=== PATIENT | female | born 1940 | race Hispanic/Latino ===

== ENCOUNTER 2022-08-31 14:23 | Emergency (ER) | payer OTHER ==
[~2022-08-31] VITALS: Ht 154.9 cm; Wt 56.2 kg
[2022-08-31] MEDS ORDERED: ACETAMINOPHEN 500 MG TABLET PO ONE (15:30)
[2022-08-31 16:56] VITALS: BP 128/74
== END 2022-08-31 17:00 | disposition home or self-care (01) ==
LOC: EDH 14:23
DX: M25.512 Pain in left shoulder (principal); E11.9 Type 2 diabetes mellitus without complications; E78.00 Pure hypercholesterolemia, unspecified; E03.9 Hypothyroidism, unspecified; Z88.0 Allergy status to penicillin; V49.49XA Driver injured in collision with other motor vehicles in traffic accident, initial encounter; Y93.89 Activity, other specified; Y92.413 State road as the place of occurrence of the external cause; Y99.8 Other external cause status
CPT/HCPCS: 73030

== ENCOUNTER 2024-04-05 09:18 | Emergency (ER) | payer OTHER ==
[~2024-04-05] VITALS: Ht 154.9 cm; Wt 57.2 kg
[2024-04-05] MEDS: DIAZEPAM 2 MG TAB PO ONE (10:00)
[2024-04-05] MEDS: LIDOCAINE 5% TOPICAL PATCH TP ONE (10:00)
[2024-04-05] MEDS: HYDROCODONE/ACETAMINOPHEN 5/325 MG TAB PO ONE (10:00)
[2024-04-05 10:16] LABS: CREATININE 0.7 mg/dL (0.5-1.0); POTASSIUM 4.3 mmol/L (3.5-5.1)
[2024-04-05 10:17] LABS: BASOPHILS # (AUTO) 0.03 K/uL (0.00-0.20); BASOPHILS % (AUTO) 0.6 % (0.0-5.0); EOSINOPHILS # (AUTO) 0.12 K/uL (0.00-0.70); EOSINOPHILS % (AUTO) 2.3 % (0.0-8.0); IMMATURE GRANULOCYTE ABSOLUTE 0.01 K/uL (0-1); LYMPHOCYTES # (AUTO) 1.7 K/uL (1.0-4.8); LYMPHOCYTES % (AUTO) 32.7 % (21.0-51.0); MEAN CORPUSCULAR HGB CONC 33.4 g/dL (32.0-36.0); MEAN CORPUSCULAR VOLUME 86.9 fL (79-99); MONOCYTES # (AUTO) 0.5 K/uL (0.1-1.0); MONOCYTES % (AUTO) 9.2 % (3.0-13.0); NEUTROPHILS # (AUTO) 2.9 K/uL (1.8-7.7); PLATELET COUNT (AUTO) 164 K/uL (130-400); RED BLOOD CELL COUNT(AUTO) 4.72 MIL/uL (4.00-5.50); RED CELL DISTRIBUTION WIDTH 12.8 % (11.0-15.5); WHITE BLOOD COUNT (AUTO) 5.3 K/uL (4.8-10.8)
[2024-04-05 10:20] LABS: ALBUMIN 4.1 g/dL (3.5-5.0); BILIRUBIN,TOTAL 0.6 mg/dL (0.2-1.0); TOTAL PROTEIN, SERUM 7.5 g/dL (6.0-8.3)
[2024-04-05 11:19] LABS: APPEARANCE,URINE CLEAR (CLEAR); BILIRUBIN,URINE NEGATIVE (NEGATIVE); COLOR,URINE LIGHT-YELLOW (YELLOW); GLUCOSE, URINE (UA) >=1000 mg/dL (NEGATIVE); KETONES,URINE NEGATIVE (NEGATIVE); LEUKOCYTE ESTERASE ,URINE 25 Leu/uL (NEGATIVE); NITRATE,URINE NEGATIVE (NEGATIVE); PROTEIN,URINE 10 mg/dL (NEGATIVE); UROBILINOGEN,URINE 0.2 mg/dL (0.2-1.0)
[2024-04-05 11:21] LABS: ADD UA MICROSCOPIC YES
[2024-04-05 11:23] LABS: MUCUS,URINE RARE LPF (None Seen); SQUAMOUS EPITHELIAL CELL,UR RARE /HPF (0-2)
[2024-04-05] MEDS: IBUPROFEN 400 MG TABLET PO ONE (12:09)
[2024-04-05 12:56] VITALS: BP 113/59; PULSE 59; RESP 18; O2SAT 98
[2024-04-05] MEDS ORDERED: DIAZ2TAB PO (12:57)
== END 2024-04-05 13:24 | disposition home or self-care (01) ==
LOC: EDH 09:18
DX: S29.011A Strain of muscle and tendon of front wall of thorax, initial encounter (principal); M62.838 Other muscle spasm; E11.9 Type 2 diabetes mellitus without complications; E03.9 Hypothyroidism, unspecified; Z98.890 Other specified postprocedural states; Z88.0 Allergy status to penicillin; Z88.8 Allergy status to other drugs, medicaments and biological substances; X58.XXXA Exposure to other specified factors, initial encounter; Y93.89 Activity, other specified; Y92.89 Other specified places as the place of occurrence of the external cause; Y99.8 Other external cause status
CPT/HCPCS: 36415; 71250; 80053; 81001; 85025; 86140; 93005

== ENCOUNTER 2024-12-27 17:23 | Emergency (ER) | payer OTHER ==
[~2024-12-27] VITALS: Ht 154.9 cm; Wt 54.9 kg
[~2024-12-27 17:23] MED LIST: DIAZ2TAB PO
[2024-12-27 17:28] VITALS: BP 146/87; PULSE 91; RESP 16; TEMP 98.5
[2024-12-27] MEDS ORDERED: FLUC150T48 PO (18:06)
[2024-12-27] MEDS ORDERED: HYDR453. TP (18:06)
--- NOTE | 2024-12-27 18:07 | ERN ---
General Chief Complaint: Vaginal Problems/Bleeding Stated Complaint: VAGINAL PAIN, ITCHINESS History of Present Illness Initial Comments 84-year-old female who presents for vaginal pain and itching. Patient reports last couple weeks she has had some irritation. She has been using scented cream s to notice try to make it feel better but now it is swollen. No discharge. No systemic illness. No other concerns. Allergies: Coded Allergies: Penicillins (Verified Allergy, Unknown, 04/05/24) metformin (Unverified Allergy, Unknown, 04/05/24) Uncoded Allergies: PCN (Allergy, Severe, 11/08/12) Home Meds Active Scripts Diazepam (Valium) 2 Mg Tablet, 2 MG PO TID PRN for spasm, #15 TAB 0 Refills Prov:LEO SANABRIA MD 04/05/24 Past Medical History Past Medical History: Diabetes-Type II, High Cholesterol, Hyperthyroid Past Surgical History: BTL, Surgical History Other: RT ARM, RT FOOT ROS Dictation CONSTITUTIONAL: No chills, no fever, no weakness, no diaphoresis, no malaise. HEAD/FACE: No signs of trauma. EENT: No eye pain, no blurred vision, no tearing, no double vision, no ear pain, no ear discharge, no nose pain, no nasal congestion, no throat pain, no throat swelling, no mouth pain. RESPIRATORY: No cough, no orthopnea, no SOB, no stridor, no wheezing. CARDIOVASCULAR: No chest pain, no edema, no palpitations, no syncope. GASTROINTESTINAL/ABDOMINAL: No abdominal pain, no constipation, no diarrhea, no nausea, no vomiting. GENITOURINARY: Vaginal itching MUSCULOSKELETAL: No back pain, no gout, no joint pain, no joint swelling, no muscle pain, no muscle stiffness, no neck pain. INTEGUMENTARY: No change in color, no change in hair/nails, no dryness, no lesion, no lumps, no rash. NEUROLOGICAL/PSYCH: No anxiety, not depressed, no emotional problem, no headache, no numbness, no pre-existing deficit, no history of seizures, no tremors, no weakness. HEMATOLOGIC/LYMPHATIC: Not anemic, no history of blood clots, no apparent bleeding, no bruising, glands not swollen. All Systems Negative, Except as Noted. Physical Exam Physical Exam Dictation VITAL SIGNS: Reviewed. GENERAL APPEARANCE: Alert, oriented x3, no acute distress HEAD AND FACE: Non-traumatic. EYES: PERRL, pink conjunctivas, eyelid no trauma, anterior chamber clear. EARS: Pinnas intact and no signs of trauma or erythema. Ear canals clear and no discharge. TMs no erythema. NOSE: No discharge, no bleeding. OROPHARYNX: Mouth normal, teeth no caries, tongue pink. Pharynx clear, no erythema. Tonsils no exudates, no abscesses noted. Mucous membrane moist. NECK: Supple, non-tender, no thyromegaly, no masses, no JVD, no bruits. BREAST: Deferred. CHEST: No tenderness, no crepitus, no paradoxical movement, no retractions. LUNGS: Clear, well-ventilated, symmetric, no rales, no wheezing, no rhonchi, no stridor, good breath sounds bilaterally. HEART: Regular rate, regular rhythm, no murmur, no gallops. VASCULAR: No peripheral edema. ABDOMEN: Soft, positive bowel sounds, nondistended, no guarding, nontender, no rebound, no masses no hepatomegaly, no splenomegaly, no Silverman's sign, no hernias. RECTAL: Deferred. GENITAL: Symptoms consistent with vulvovaginitis, some swelling. NEUROLOGICAL: Normal speech, gross motor function intact, gross sensory function intact. MUSCULOSKELETAL: Neck nontender, full range of motion, back nontender, full range of motion. EXTREMITIES: Nontender, full range of motion. SKIN: Color pink, dry, no turgor, no rash, no lacerations, no abrasions, no contusions. LYMPHATICS: Deferred. MDM CC: Vaginal itching Historian: Patient Comorbidities: Advanced age Limitations by social determinants of health: None Differential diagnosis: Vaginitis, UTI, other. Clinically patient has a vulvovaginitis. I suspect he had a all the recent creams likely irritant versus allergic. Possibly candidiasis. Low suspicion for any STI. We will DC with Diflucan, topical hydrocortisone, [id number] medications as needed. ED Course Vital Signs Date Time Temp Pulse Resp B/P (MAP) Pulse Ox O2 Delivery O2 Flow Rate FiO2 12/27/24 17:28 98.4 91 16 146/87 96 Room Air 0 DX & DISP Disposition: Discharge Departure Impression: Primary Impression: Vulvovaginitis Condition: Stable Scripts Hydrocortisone (Hydrocortisone) 1 % Cream..g. 1 APPL TP BID for 7 Days, #30 GM 0 Refills apply to affected area(s) Prov: DANNI PACHECO DO 12/27/24 Fluconazole (Fluconazole) 150 Mg Tablet 1 TAB PO ONCE for 1 Day, #1 TAB 0 Refills Prov: DANNI PACHECO DO 12/27/24 Additional Instructions: Your symptoms are consistent with a vulvovaginitis. I have prescribed fluconazole oral tab. Take one tab when he fell this prescription. I have prescribed 1% hydrocortisone cream. I recommend that you apply this twice per day for the next 3-5 days for inflammation. Remove all triggers. Avoid sent in soaps, bubble baths, and tight clothing. I recommend taking a warm bath daily to reduce pain and inflammation. You can use emollients like Vaseline or Aquaphor for barrier protection. I recommend that you follow up with your [facility] director for further treatment and evaluation. Referrals: FLACO HESS MD (PCP) DANNI PACHECO DO Dec 27, 2024 18:07
[2024-12-27] MEDS: fluCONazole 100 MG TAB PO ONE (18:15)
== END 2024-12-27 18:35 | disposition home or self-care (01) ==
LOC: EDH 17:23
DX: N76.0 Acute vaginitis (principal); E11.9 Type 2 diabetes mellitus without complications; E78.00 Pure hypercholesterolemia, unspecified; Z88.0 Allergy status to penicillin; Z98.51 Tubal ligation status; Z98.890 Other specified postprocedural states
CPT/HCPCS: 99283